=== PATIENT | male | born 1975 | race Caucasian/White ===

== ENCOUNTER → 2022-11-18 | Outpatient (CLI) | payer OTHER ==
--- NOTE | 2022-11-18 16:02 | Diagnostic Imaging Report ---
MRI LT UPPER EXT JOINT W/O Technique: Multiplanar, multisequence MR imaging of the left shoulder was performed without contrast. Comparison: None available. Indication: Left shoulder pain Findings: Rotator cuff: Supraspinatus is intact. Infraspinatus has tendinopathy with low-grade bursal sided tear in its anterior aspect. Teres minor is intact. Partial-thickness interstitial tear in the cranial aspect of the subscapularis. No rotator cuff muscle atrophy or edema. Glenoid labrum: Abnormal signal and morphology of the superior labrum suggests nondisplaced labral tear. Long head of biceps: Medial subluxation long head of biceps which is partially perched upon the lesser tuberosity. The origin long head of biceps is intact with tendinopathy in the intracapsular segment. Bones and cartilage: Humeral head is normal in morphology without fracture or focal osseous lesion. No glenohumeral chondromalacia. The acromioclavicular joint is normal in alignment without significant degenerative change. Soft tissues: Moderate size glenohumeral joint effusion. No MRI findings to suggest adhesive capsulitis. No fluid or inflammatory like signal within the subacromial/subdeltoid space to indicate bursitis. IMPRESSION: 1. Low-grade partial-thickness bursal sided tear in the anterior infraspinatus. 2. Interstitial tear in the cranial aspect of the subscapularis allows medial subluxation long head of biceps. 3. Origin long head of biceps is intact with tendinopathy of intracapsular segment. 4. Probable superior labral tear. Dictated by: Dictated on workstation # [id number]
== END ==
LOC: RAD 12:56
PROVIDERS: ATTEND Nurse Practitioner Family
DX: S41.012A Laceration without foreign body of left shoulder, initial encounter (principal); X58.XXXA Exposure to other specified factors, initial encounter
CPT/HCPCS: 73221